=== PATIENT | male | born 1990 | race Caucasian/White ===

== ENCOUNTER 2017-07-14 17:51 | Emergency (ER) | payer OTHER ==
[~2017-07-14] VITALS: Ht 170.2 cm; Wt 61.2 kg
[~2017-07-14 17:51] MED LIST: CIPR-225 PO; HYDR1TAB8 PO; ONDA4TAB8 PO; TAMS0.4C98 PO
--- NOTE | 2017-07-14 18:13 | ED Upper Extremity ---
General Chief Complaint: Laceration Stated Complaint: L HAND LAC Source: patient Exam Limitations: no limitations History of Present Illness Date Seen by Provider: Jul 14, 2017 Time Seen by Provider: 18:11 Initial Comments To ER with a 1 semi-laceration to the ulnar side left hand from From sharpening a knife at work at [employer] [facility] [employer] Onset: just prior to arrival Severity: moderate Pain/Injury Location: left hand Allergies and Home Medications Allergies Coded Allergies: NKANo Known Allergies (Verified Allergy, Unknown, 08/09/05) Home Medications Ciprofloxacin HCl 500 Mg Tablet, 500 MG PO BID, #20 Prescribed by: REBECCA FRIEDMAN on 02/03/162307 Hydrocodone/Ibuprofen 1 Each Tablet, 1-2 EACH PO Q4H, #30 Prescribed by: REBECCA FRIEDMAN on 02/03/162307 Ondansetron 4 Mg Tab.rapdis, 4 MG PO Q4H, #10 Prescribed by: REBECCA FRIEDMAN on 02/03/162307 Tamsulosin HCl 0.4 Mg Cap, 0.4 MG PO DAILY, #10 Prescribed by: REBECCA FRIEDMAN on 02/03/162307 Constitutional: see HPI EENTM: see HPI Respiratory: no symptoms reported Cardiovascular: no symptoms reported Genitourinary: no symptoms reported Musculoskeletal: no symptoms reported Skin: see HPI Psychiatric/Neurological: No Symptoms Reported Past Eqckoiw-Tuwrmd-Gbknev Hx Patient Social History Alcohol Use: Denies Use Number of Drinks Today: AA Alcohol Beverage of Choice: Beer Recreational Drug Use: No Smoking Status: Current Someday Smoker Type Used: Cigarettes Recent Foreign Travel: No Contact w/Someone Who Travel: No Recent Hopitalizations: No Immunizations Up To Date Tetanus Booster (TDap): Unknown Surgeries History of Surgeries: No Respiratory History of Respiratory Disorde: Yes Respiratory Disorders: Asthma Cardiovascular History of Cardiac Disorders: No Neurological History of Neurological Disord: No Reproductive System Hx Reproductive Disorders: No Gastrointestinal History of Gastrointestinal Di: No Musculoskeletal History of Musculoskeletal Dis: No Endocrine History of Endocrine Disorders: No Cancer History of Cancer: No Psychosocial History of Psychiatric Problem: No Integumentary History of Skin or Integumenta: No Blood Transfusions History of Blood Disorders: No Physical Exam Vital Signs Capillary Refill : General Appearance: WD/WN, no apparent distress HEENT: PERRL/EOMI, normal ENT inspection Neck: non-tender, full range of motion Respiratory: normal breath sounds, no respiratory distress, no accessory muscle use Shoulder: normal inspection, non-tender Elbow/Forearm: normal inspection, non-tender, Left Hand: Left (ulnar side left hand has a 1 cm laceration depth is a cutaneous tissues. No active bleeding.) Neurologic/Psychiatric: alert, normal mood/affect, oriented x 3 Skin: normal color, warm/dry Laceration Repair : Wound Location: Upper Extremities Other Closure Supply: Wound Adhesive Progress/Results/Core Measures Results/Orders My Orders Orders - CLIFFORD CHEEMA APRN Dipht,Pertuss(Acell),Tet Adult (Boostrix (07/14/17 18:15) Departure Impression Impression: Primary Impression: Laceration of hand Disposition: 01 HOME, SELF-CARE Condition: Stable Departure-Patient Inst. Decision time for Depature: 18:13 Referrals: [facility] (PCP/Family) Primary Care Physician Patient Instructions: Laceration Repair With Glue (DC) Add. Discharge Instructions: 1. Allow the glue to follow up on its own in a few days 2. Return to ER for any concerns 3. All discharge instructions reviewed with patient and/or family. Voiced understanding. CLIFFORD CHEEMA APRN Jul 14, 2017 18:13
[2017-07-14] MEDS ORDERED: TETANUS,DIPTH,PERTUSS P/F (BOOSTRIX) 0.5 ML VIAL IM ONE (18:15)
[2017-07-14 18:31] VITALS: BP 114/67
--- OUTSIDE RECORDS SUMMARY | 2017-07-14 19:14 | XMS REPORT ---
Author Author LAX[place] Organization [employer] Address Unknown Phone Unavailable Care Team Providers Care Cartridge Filler Name Role Phone [place] CP Unavailable Allergies No Known Allergies Problems Problem Type Condition Code Onset Dates Condition Status Problem Influenza with other respiratory manifestations 487.1 Active Problem Chest pain, unspecified 786.50 Active Problem Panic disorder without agoraphobia 300.01 Active Problem Abdominal pain, other specified site 789.09 Active Problem Screening examination for venereal disease V74.5 Active Problem Dysuria 788.1 Active Problem Anxiety state, unspecified 300.00 Active Problem Asthma J45.909 Active Problem Rash and other nonspecific skin eruption 782.1 Active Problem Lumbago 724.2 Active Problem Unspecified backache 724.5 Active Problem Contact dermatitis and other eczema, due to unspecified cause 692.9 Active Medications No Known Medications Results No Known Results Summary Purpose [employer] Submission
--- OUTSIDE RECORDS SUMMARY | 2017-07-14 19:14 | XMS REPORT ---
Author Author [place] Organization [employer] Address Unknown Phone Unavailable Care Team Providers Care Catalyst Plant Supervisor Name Role Phone [place] CP Unavailable Allergies, Adverse Reactions, Alerts Substance Reaction Event Type Celexa 10 Mg Tablet Anxiety Non Drug Allergy Problems Problem Type Condition Code Onset Dates Condition Status Problem Influenza with other respiratory manifestations 487.1 Active Problem Chest pain, unspecified 786.50 Active Problem Panic disorder without agoraphobia 300.01 Active Problem Dysuria 788.1 Active Problem Anxiety state, unspecified 300.00 Active Problem Asthma J45.909 Active Problem Rash and other nonspecific skin eruption 782.1 Active Problem Lumbago 724.2 Active Problem Unspecified backache 724.5 Active Problem Contact dermatitis and other eczema, due to unspecified cause 692.9 Active Assessment Irregular heartbeat I49.9 Active Assessment Asthma J45.909 Active Problem Abdominal pain, other specified site 789.09 Active Assessment General medical exam Z00.00 Active Problem Screening examination for venereal disease V74.5 Active Medications Medication Code System Code Instructions Start Date End Date Status Dosage Albuterol Sulfate [facility] [address]-98 (2.5 MG/3ML) 0.083% Inhalation Three times a day May 21, 2015 3 ml Albuterol Sulfate [facility] [address]-06 108 (90 Base) MCG/ACT Inhalation every 4 hrs May 21, 2015 1 puff as needed Procedures Procedure Coding System Code Date Office Visit, Est Pt., Level 3 CPT-4 73791 May 21, 2015 ELECTROCARDIOGRAM, TRACING CPT-4 44154 May 21, 2015 Vital Signs Date/Time: May 21, 2015 Temperature 97.8 F Weight 136.3 lbs Height 68 in BMI 20.72 Index Blood Pressure Diastolic 82 mmHg Blood Pressure Systolic 118 mmHg Cardiac Monitoring Heart Rate 64 bpm Results Name Result Date Reference Range Unit Abnormality Flag EKG, TRACING (IN-HOUSE) Summary Purpose [employer] Submission
--- OUTSIDE RECORDS SUMMARY | 2017-07-14 19:14 | XMS REPORT ---
Author TIFF Jacobsen [facility] e[employer] Address Unknown Phone Unavailable Care Team Providers Care Nut Feeder Name Role Phone TIFF [place] CP Unavailable Allergies, Adverse Reactions, Alerts Substance [...] due to unspecified cause 692.9 Active Assessment Dental examination Z01.20 Active Problem Abdominal pain, other specified site 789.09 Active Problem Screening examination for venereal disease V74.5 Active Medications Medication Code System Code Instructions Start Date End Date Status Dosage Severance [facility] [address]-44 5-325 MG Orally every 6 hrs 1 tablet as needed Albuterol Sulfate [facility] [address]-33 (2.5 MG/3ML) 0.083% Inhalation Three times a day May 21, 2015 3 ml Amoxicillin [facility] [address]-29 500 MG Orally 4 times daily 1 capsule Procedures Procedure Coding System Code Date INTRAORL-PERIAPICAL 1 FILM 01120 CPT-4 D0220 September 07, 2015 BITEWING - SINGLE FILM CPT-4 D0270 September 07, 2015 LTD ORAL EVALUATION - PROBLEM FOCUS CPT-4 D0140 September 07, 2015 Vital Signs Date/Time: September 07, 2015 Blood Pressure Diastolic 90 mmHg Blood Pressure Systolic 132 mmHg Height 68 in Results No Known Results Summary Purpose [employer] Submission
--- OUTSIDE RECORDS SUMMARY | 2017-07-14 19:14 | XMS REPORT ---
Author Author [place] Organization [employer] Address Unknown Phone Unavailable Care Team Providers Care Manager Clinical Services Name Role Phone [place] CP Unavailable [...]
--- OUTSIDE RECORDS SUMMARY | 2017-07-14 19:14 | XMS REPORT | Continuity of Care Document ---
Author Author [facility] Address Unknown Phone Unavailable Allergies Active Description Code Type Severity Reaction Onset Reported/Identified Relationship to Patient Clinical Status Yes Celexa 10 mg tablet Drug Allergy 05/09/2012 Yes Celexa 10 mg tablet Drug Allergy N/A N/A 05/09/2012 Medications There is no data. Problems Date Dx Coded Attending Type Code Diagnosis Diagnosed By 02/28/2012 KIT DEJESUS DO 788.1 pain during urination (dysuria) 02/28/2012 KIT DEJESUS DO 788.1 pain during urination (dysuria) 02/28/2012 788.1 pain during urination (dysuria) 02/28/2012 KYUNG QUINONEZ APRN 788.1 pain during urination (dysuria) 02/28/2012 788.1 pain during urination (dysuria) 02/28/2012 788.1 pain during urination (dysuria) 02/28/2012 788.1 pain during urination (dysuria) 02/28/2012 ED POTTER APRN 788.1 pain during urination (dysuria) 02/28/2012 KIT DEJESUS DO 788.1 pain during urination (dysuria) 05/04/2012 KIT DEJESUS DO 300.00 ANXIETY DISORDER NOS 05/04/2012 KIT DEJESUS DO 300.00 ANXIETY DISORDER NOS 05/04/2012 300.00 ANXIETY DISORDER NOS 05/04/2012 KYUNG QUINONEZ APRN 300.00 ANXIETY DISORDER NOS 05/04/2012 300.00 ANXIETY DISORDER NOS 05/04/2012 300.00 ANXIETY DISORDER NOS 05/04/2012 300.00 ANXIETY DISORDER NOS 05/04/2012 ED POTTER APRN 300.00 ANXIETY DISORDER NOS 05/04/2012 KIT DEJESUS DO 300.00 ANXIETY DISORDER NOS 05/09/2012 KIT DEJESUS DO 724.2 BACK PAIN, LOWER 05/09/2012 DEJESUS KIT MACDONALD K 724.2 BACK PAIN, LOWER 05/09/2012 724.2 BACK PAIN, LOWER 05/09/2012 KYUNG QUINONEZ APRN 724.2 BACK PAIN, LOWER 05/09/2012 724.2 BACK PAIN, LOWER 05/09/2012 724.2 BACK PAIN, LOWER 05/09/2012 724.2 BACK PAIN, LOWER 05/09/2012 ED POTTER APRN R 724.2 BACK PAIN, LOWER 05/09/2012 DEJESUS DOOLAYINKAA K 724.2 BACK PAIN, LOWER 05/11/2012 DEJESUS DOOLAYINKAA K 789.09 ABDOMINAL PAIN OTHER SPECIFIED SITE 05/11/2012 DEJESUS DOOLAYINKAA K V74.5 STD SCREEN 05/11/2012 DEJESUS DOOLAYINKAA K 789.09 ABDOMINAL PAIN OTHER SPECIFIED SITE 05/11/2012 DEJESUS DOOLAYINKAA K V74.5 STD SCREEN 05/11/2012 789.09 ABDOMINAL PAIN OTHER SPECIFIED SITE 05/11/2012 V74.5 STD SCREEN 05/11/2012 KYUNG QUINONEZ APRN S 789.09 ABDOMINAL PAIN OTHER SPECIFIED SITE 05/11/2012 KYUNG QUINONEZ APRN S V74.5 STD SCREEN 05/11/2012 789.09 Abdominal Pain Other Specified Site 05/11/2012 V74.5 STD SCREEN 05/11/2012 789.09 Abdominal Pain Other Specified Site 05/11/2012 V74.5 STD SCREEN 05/11/2012 789.09 Abdominal Pain Other Specified Site 05/11/2012 V74.5 STD SCREEN 05/11/2012 ED POTTER APRN R 789.09 Abdominal Pain Other Specified Site 05/11/2012 ED POTTER APRN R V74.5 STD SCREEN 05/11/2012 DEJESUS DOOLAYINKAA K 789.09 Abdominal Pain Other Specified Site 05/11/2012 DEJESUS DOOLAYINKAA K V74.5 STD SCREEN 07/10/2012 300.01 AN PANIC DIS W/O AGORA 07/10/2012 KYUNG QUINONEZ APRN S 300.01 AN PANIC DIS W/O AGORA 07/10/2012 300.01 AN PANIC DIS W/O AGORA 07/10/2012 300.01 AN PANIC DIS W/O AGORA 07/10/2012 300.01 AN PANIC DIS W/O AGORA 07/10/2012 ED POTTER APRN 300.01 AN PANIC DIS W/O AGORA 07/10/2012 KIT DEJESUS DO 300.01 AN PANIC DIS W/O AGORA 09/03/2012 KYUNG QUINONEZ APRN S 692.9 CONTACT DERMATITIS AND OTHER ECZEMA UNSPECIFIED CAUSE 09/03/2012 KYUNG QUINONEZ APRN S 724.5 BACKACHE UNSPECIFIED 09/03/2012 692.9 CONTACT DERMATITIS AND OTHER ECZEMA UNSPECIFIED CAUSE 09/03/2012 724.5 BACKACHE UNSPECIFIED 09/03/2012 692.9 CONTACT DERMATITIS AND OTHER ECZEMA UNSPECIFIED CAUSE 09/03/2012 724.5 BACKACHE UNSPECIFIED 09/03/2012 692.9 CONTACT DERMATITIS AND OTHER ECZEMA UNSPECIFIED CAUSE 09/03/2012 724.5 BACKACHE UNSPECIFIED 09/03/2012 ED POTTER APRN 692.9 CONTACT DERMATITIS AND OTHER ECZEMA UNSPECIFIED CAUSE 09/03/2012 ED POTTER APRN R 724.5 BACKACHE UNSPECIFIED 09/03/2012 KIT DEJESUS DO 692.9 CONTACT DERMATITIS AND OTHER ECZEMA UNSPECIFIED CAUSE 09/03/2012 KIT DEJESUS DO 724.5 BACKACHE UNSPECIFIED 10/05/2012 782.1 RASH AND OTHER NONSPECIFIC SKIN ERUPTION 10/05/2012 782.1 RASH AND OTHER NONSPECIFIC SKIN ERUPTION 10/05/2012 782.1 RASH AND OTHER NONSPECIFIC SKIN ERUPTION 10/05/2012 ED POTTER APRN 782.1 RASH AND OTHER NONSPECIFIC SKIN ERUPTION 10/05/2012 KIT DEJESUS DO 782.1 RASH AND OTHER NONSPECIFIC SKIN ERUPTION 04/08/2013 ED POTTER APRN 786.50 CHEST PAIN 04/08/2013 KIT DEJESUS DO 786.50 CHEST PAIN 06/10/2013 KIT DEJESUS DO 487.1 INFLUENZA WITH OTHER RESPIRATORY MANIFESTATIONS Procedures Code [place] [address] UA LONG DIP 05/04/[address] ABDOMEN & PELVIS W/O CONTRAST 05/10/2012 12909 CMP 05/10/2012 55714 CBC 05/10/2012 PSYCH NANDO NOEL 05/10/2012 63465 ROUTINE VENIPUNCTURE 05/11/2012 48432 UA W/ CULTURE IF INDICATED 05/11/2012 22217 SYPHILLIS-[facility] 05/11/2012 83533 HIV-[facility] 05/11/2012 85363 CULTURE URINE 05/11/2012 04345 GC/CHLAM URINE (STATE) 05/11/2012 69277 GC/CHLAM URINE (STATE) 12/06/2012 33342 EKG, TRACING (IN-HOUSE) 04/08/2013 43060 INFLUENZA A & B (IN-HOUSE) 06/10/2013 Results There is no data. Encounters ACCT No. Visit Date/Time Discharge Status Pt. Type Provider Facility Loc./Unit Complaint [id number] 06/10/2013 15:52:00 06/10/2013 23:59:59 CLS Outpatient KIT DEJESUS DO [id number] 04/08/2013 13:14:00 04/08/2013 23:59:59 CLS Outpatient ED POTTER APRN [id number] 09/03/2012 15:04:00 09/03/2012 23:59:59 CLS Outpatient KYUNG QUINONEZ APRN [id number] 07/10/2012 15:53:00 07/10/2012 23:59:59 CLS Outpatient [id number] 05/11/2012 13:27:00 05/11/2012 23:59:59 CLS Outpatient KIT DEJESUS DO [id number] 05/09/2012 15:12:00 05/09/2012 23:59:59 CLS Outpatient KIT DEJESUS DO [id number] 12/06/2012 14:13:00 Document Registration [id number] 10/26/2012 08:19:00 Document Registration [id number] 10/05/2012 15:26:00 Document Registration
== END 2017-07-14 18:31 | disposition home or self-care (01) ==
LOC: EDUNIT# 17:51 → ER 17:52
DX: S61.412A Laceration without foreign body of left hand, initial encounter (principal); J45.909 Unspecified asthma, uncomplicated; F17.210 Nicotine dependence, cigarettes, uncomplicated; Z88.1 Allergy status to other antibiotic agents; Z23 Encounter for immunization; W26.0XXA Contact with knife, initial encounter
CPT/HCPCS: 90471; 90715; 99284